=== PATIENT | male | born 2000 | race Caucasian/White ===

== ENCOUNTER 2021-11-17 19:30 | Emergency (ER) | payer BC ==
[~2021-11-17] VITALS: Ht 185.4 cm; Wt 115.7 kg
[2021-11-17 20:30] VITALS: BP 120/81
[2021-11-17 21:03] LABS: Basophils # (auto) 0 10 ^3/uL (0-0.2); Basophils % (auto) 0.3 % (0.0-2.0); Eosinophils # (auto) 0.1 10 ^3/uL (0-0.8); Eosinophils % (auto) 1.8 % (0.0-7.0); Hemoglobin 14.9 g/dL (13.5-17.5); Lymphocytes # (auto) 0.5 10 ^3/uL (0.4-5.4); Lymphocytes % (auto) 6.2 % (10.0-50.0); Mean Corpuscular Hemoglobin 31.7 pg (28.0-32.0); Mean Corpuscular Hgb Conc. 34.7 g/dL (32.0-36.0); Mean Corpuscular Volume 91.4 fL (80.0-100.0); Monocytes # (auto) 0.8 10 ^3/uL (0-1.3); Monocytes % (auto) 10.1 % (0.0-12.0); Neutrophils # (auto) 6.7 10 ^3/uL (1.6-8.6); Neutrophils % (auto) 81.6 % (37.0-80.0); Red Cell Distribution Width 13.2 % (11.8-14.3); White Blood Cell 8.2 10^3/uL (4.4-10.8)
[2021-11-17 21:19] LABS: Albumin 4.1 g/dL (3.4-5.0); Calcium 8.5 mg/dL (8.5-10.1); Potassium 3.8 mmol/L (3.5-5.1)
[2021-11-17 21:25] LABS: BUN/Creatinine Ratio 8.3; Bilirubin, Total 0.8 mg/dL (0.2-1.0); Total Protein 8.2 g/dL (6.4-8.2)
[2021-11-17 21:28] LABS: Urine Bacteria NONE SEEN /hpf (None Seen); Urine Blood Negative /uL (Negative); Urine Mucus FEW (None Seen); Urine Specific Gravity 1.027 (1.001-1.035); Urine WBC 8 /hpf (0 - 3)
[2021-11-17] MEDS ORDERED: OXYCODONE W/ ACETAMINOPHEN 5/325MG TABLET PO ONE (22:00)
[2021-11-17] MEDS ORDERED: AZITHROMYCIN 250 MG TAB PO ONE (22:00)
[2021-11-17] MEDS ORDERED: ALBUAER3 IN (22:21)
[2021-11-17] MEDS ORDERED: AZIT250T9 PO (22:21)
== END 2021-11-17 22:42 | disposition home or self-care (01) ==
LOC: ER 19:37
DX: J40 Bronchitis, not specified as acute or chronic (principal)
CPT/HCPCS: 36415; 71045; 80053; 81001; 83735; 84484; 85025; 87426; 93005